=== PATIENT | female | born 1965 | race Caucasian/White ===

== ENCOUNTER 2018-04-13 10:51 | Emergency (ER) | payer BC ==
[~2018-04-13] VITALS: Ht 162.6 cm; Wt 100.0 kg
[2018-04-13 10:55] VITALS: BP 117/109; Ht 162.6 cm; Wt 100.0 kg
[2018-04-13] MEDS ORDERED: HYDROCODON-ACE1 EA10 PO (10:58)
[2018-04-13] MEDS ORDERED: LEXAPRO20 MG PO (10:58)
[2018-04-13 11:11] LABS: BASOPHILS 0.6 % (0-2); EOSINOPHILS 1.3 % (0-7); HEMATOCRIT 41.8 % (36.0-48.0); HEMOGLOBIN 14.3 g/dL (12-16); IMMATURE GRANULOCYTES 0.3 % (0-5); LYMPHOCYTES 23.5 % (15-50); MCH 32.5 pg (26.0-34.0); MCHC 34.2 g/dL (31.0-37.0); MEAN PLATELET VOLUME 9.5 fL (7.4-10.4); MONOCYTES 6.4 % (2-11); NEUTROPHILS 67.9 % (40-80); PLATELET COUNT 301 10x3/uL (130-400); RDW 12.3 % (11.5-14.5); WBC 6.8 10x3/uL (4.8-10.8)
[2018-04-13 11:24] LABS: ALBUMIN 4.8 g/dL (3.4-5.0); ALKALINE PHOSPHATASE 75 U/L (46-116); ALT (SGPT) 62 U/L (10-68); BILIRUBIN - TOTAL 0.41 mg/dL (0.2-1.3); CALC OSMOLALITY 279 mosm/kg (275-300); CALCIUM 9.2 mg/dL (8.5-10.1); CARBON DIOXIDE 26.8 mmol/L (21.0-32.0); CHLORIDE - SERUM 102 mmol/L (98-107); CREATININE - SERUM 0.8 mg/dL (0.6-1.3); GLUCOSE 99 mg/dL (74-106); SODIUM 140 mmol/L (136-145); UREA NITROGEN 14 mg/dL (7-18); eGFR NON AFRICAN AMERICAN 79 mL/min (90-120)
[2018-04-13 11:32] LABS: INR 0.94 (0.85-1.17); PROTIME 12.1 SECONDS (11.6-15.0)
[2018-04-13 11:33] LABS: APTT 24.7 SECONDS (22.8-39.4)
[2018-04-13 11:36] LABS: CKMB 2.7 U/L (0.0-3.6); CREATINE KINASE 125 UL (21-215); TROPONIN-I < 0.017 ng/mL (0.000-0.060)
== END 2018-04-13 14:08 | disposition home or self-care (01) ==
LOC: D.ER 10:51
PROVIDERS: Family Medicine
DX: R06.02 Shortness of breath (principal); Z85.72 Personal history of non-Hodgkin lymphomas; I10 Essential (primary) hypertension